=== PATIENT | male | born 2000 | race Caucasian/White ===

== ENCOUNTER 2024-01-06 10:37 | Emergency (ER) | payer OTHER, SELFPAY ==
[2024-01-06] VITALS (12 sets, daily range): BP systolic 105–125; BP diastolic 51–65; PULSE 94–130; RESP 18–31; TEMP 37; O2SAT 93–99; BMI 27.3
--- NOTE | 2024-01-06 11:17 | DI.RAD.S_ITS ---
PROCEDURE: XR CHEST 2V INDICATIONS: cough TECHNIQUE: 2 views of the chest were acquired. COMPARISON: None. FINDINGS: Surgical changes and devices: None. Lungs and pleura: Lungs are clear. No pleural effusions or pneumothorax. Mediastinum: Mediastinal contours are normal. Heart size is normal. Bones and chest wall: No suspicious bony abnormalities. Soft tissues appear unremarkable. IMPRESSION: No acute cardiopulmonary abnormality is seen. Dictated by: Vipin Monroy M.D. on 01/06/2024 at 12:17 Approved by: Vipin Monroy M.D. on 01/06/2024 at 12:17
--- NOTE | 2024-01-06 14:06 | EKG_ITS ---
[address] [address] Test Date: 2024-01-06 Pat Name: Oz Naranjo Department: [facility] Room: Gender: Male Beam Warper: JOSE : 2000 Requested By: Order Number: [id number] Reading MD: Babatunde Scott Measurements Intervals [place] Rate: 96 P: 45 CA: 144 QRS: 38 QRSD: 80 T: 7 QT: 334 QTc: 421 Interpretive Statements Normal sinus rhythm Electronically Signed On 01-07-2024 14:44:10 PDT by Babatunde Scott
[2024-01-06 14:10] LABS: Add Manual Diff / Slide Review NO; Basophils Absolute Auto 100 /uL (0-100); Basophils Percent Auto 0.5 % (0-2); Eosinophils Absolute Auto 100 /uL (0-450); Eosinophils Percent Auto 1.1 % (2-4); Hematocrit 41.2 % (41-53); Hemoglobin 13.8 g/dL (13.5-17.5); Lymphocytes Absolute Auto 1400 /uL (1100-4500); Lymphocytes Percent Auto 10.8 % (25-40); Mean Corpuscular HGB Conc 33.5 % (30-36); Mean Corpuscular Hemoglobin 26.9 PG (26-34); Mean Corpuscular Volume 80.4 fL (80-100); Monocytes Absolute Auto 1200 /uL (0-900); Monocytes Percent Auto 9.2 % (3-14); Neutrophils Absolute Auto 10300 /uL (1500-7000); Neutrophils Percent Auto 78.4 % (50-75); Platelet Count 324 X10^3/uL (150-400); Red Blood Cell Count 5.13 X10^6/uL (4.5-5.9); Red Cell Distribution Width 13.5 % (11.6-14.8); White Blood Cell Count 13.2 X10^3/uL (4.5-11.0)
[2024-01-06 14:12] LABS: INR 1.3 (0.9-1.3); Prothrombin Time 15.2 SECONDS (9.4-12.5)
[2024-01-06 14:15] LABS: PTT Partial Thromboplastin Tim 36 SECONDS (25.1-36.5)
[2024-01-06 14:16] LABS: Alanine Aminotransferase 23 IU/L (<50); Albumin 4.3 g/dL (3.5-5.0); Alkaline Phosphatase 84 U/L (38-126); Aspartate Aminotransferase 16 IU/L (17-59); BUN Creatinine Ratio 13.7 (6-22); Blood Urea Nitrogen 13 mg/dL (9-20); Calcium 9.2 mg/dL (8.4-10.2); Carbon Dioxide 27 mmol/L (22-32); Chloride 102 mmol/L (98-107); Creatine Kinase 40 U/L (55-170); Estimated Glomerular Filt Rate > 60 mL/min (>60); Globulin 2.2 g/dL (1.7-4.1); Glucose 87 mg/dL (70-100); HEMOLYSIS < 15 (0-50); Magnesium 2.1 mg/dL (1.6-2.3); Potassium 4.4 mmol/L (3.4-5.1); Sodium 138 mmol/L (137-145); Total Protein 6.5 g/dL (6.3-8.2)
[2024-01-06 14:22] LABS: D Dimer 260 ng/ml (<500)
[2024-01-06] MEDS: SODIUM CHLORIDE 0.9% 500 ML 1000 ML IV ×2 (14:22→15:52)
[2024-01-06 14:28] LABS: NT-proBNP (BNP-Adult 18+) 70 pg/mL (<125); Troponin I < 0.012 ng/mL (0.01-0.034)
--- NOTE | 2024-01-06 14:38 | ED_ITS ---
HPI - SOB/Dyspnea General Chief Complaint: Upper Respiratory Symptoms Stated Complaint: PNA 2 wks ago- sent from pcp O2 90 HR 110 Time Seen by Provider: 01/06/24 12:45 Source: patient and RN notes reviewed Mode of arrival: Ambulatory Limitations: no limitations History of Present Illness HPI Narrative: 23-year-old male no reported medical issues who reports he would pneumonia on the left side in October was treated with antibiotics improved and then travel to [place] for work. States he developed cough, hoarseness and lost his voice returned to the [facility] and was diagnosed with pneumonia on December 23, was treated with antibiotics azithromycin and amoxicillin for 5 days. Completed his antibiotic course on the 28 of December. States felt a little bit improved has not had any persistent fevers but has had persistent shortness of breath, fatigue, increased shortness of breath with exertion. States occasionally little bit of chest discomfort, states he has occasionally had green productive sputum but sometimes his cough has been dry. Does have an inhaler that he had leftover from October has used it works very briefly and then symptoms returned. Patient states no new swelling of extremities. Denies any nausea or vomiting, no diarrhea constipation, no urinary symptoms. Patient has went to primary care had elevated heart rates and had O2 in the low 90s and was sent to the ER for evaluation. States no daily prescription medications normally. No known drug allergies. History of vasectomy, no tobacco, occasional alcohol, no recreational drugs. No known cardiac, pulmonary embolic history. Related Data Previous Rx's Medication Instructions Recorded clarithromycin 500 mg tablet 500 mg PO Q12H #20 tabs 01/06/24 Allergies Allergy/AdvReac Type Severity Reaction Status Date / Time No Known Drug Allergies Allergy Verified 01/06/24 10:50 Review of Systems Review of Systems ROS Unobtainable: All systems reviewed & are unremarkable except as noted in HPI and below Patient History Social History Smoking Status: Never smoker Smoking Status: Never smoker alcohol intake frequency: holidays/special occasions only Substance Use Type: does not use Exam Narrative Exam Narrative: GEN: well nourished, well appearing male, alert and oriented x 3, patient appears to be in mild distress. HEENT: Atraumatic, pupils are equal round reactive to light, extraocular movements are intact, nares are clear, there is no conjunctival pallor. Throat is clear without any exudates, erythema, tonsillar enlargement or uvular deviation, patient is slightly hoarse. HEART: Regular rate and rhythm without murmur, clicks, rubs. No edema bilateral lower extremity LUNGS:Lungs clear to auscultation, no wheezes, rales, crackles, chest moves symmetrically ABD:bowel sounds normal, soft, non-tender, no guarding, rebound, rigidity, no masses noted, no hepatosplenomegaly MSCL: Non-tender, no muscle atrophy, muscles strength 5/5 upper and lower extremities, full range of motion, normal gait NEURO:CN 2-12 intact, sensation normal. SKIN: No rash, erythema or other skin changes. Initial Vital Signs Initial Vital Signs: Vital Signs Temperature 98.6 F 01/06/24 10:47 Pulse Rate 104 H 01/06/24 10:47 Respiratory Rate 18 01/06/24 10:47 Blood Pressure 122/65 01/06/24 10:47 Pulse Oximetry 95 01/06/24 10:47 Oxygen Delivery Method Room Air 01/06/24 10:47 Course Orders Ordered: ED Orders 01/06/24 11:17 XR chest 2V Stat 01/06/24 13:48 EKG-12 Lead Stat 01/06/24 14:00 Complete Blood Count AUTO DIFF Stat Comprehensive Metabolic Panel Stat D Dimer Stat Magnesium Stat Monotest Stat NT-proBNP (BNP-Adult 18+) Stat PTT Partial Thromboplastin Cm Stat Prothrombin Time INR Stat Troponin & CK Cardiac Panel Stat 01/06/24 15:09 CT angio chest PE protocol Stat Discontinued Medications Albuterol/Ipratropium (Albuterol/Ipratropium 3 Ml Ampul) 3 ml INH NOW ONE Stop: 01/06/24 15:10 Last Admin: 01/06/24 15:21 Dose: 3 ml Documented By: MARIA ISABEL Sodium Chloride (Normal Saline 0.9%) 500 mls @ 1,000 mls/hr IV BOLUS ONE Stop: 01/06/24 14:17 Last Infusion: 01/06/24 15:04 Dose: Infused Documented By: Admin: 01/06/24 14:22 Dose: 1,000 mls/hr Documented By: CATARINA Sodium Chloride (Normal Saline 0.9%) 500 mls @ 1,000 mls/hr IV BOLUS ONE Stop: 01/06/24 15:39 Last Infusion: 01/06/24 17:17 Dose: Infused Documented By: Admin: 01/06/24 15:52 Dose: 1,000 mls/hr Documented By: CATARINA Vital Signs Vital signs: Vital Signs - 8 hr 01/06/24 10:47 01/06/24 10:53 01/06/24 13:49 Temperature 98.6 F Pulse Rate 104 H 130 H 99 H Respiratory Rate 18 30 H Blood Pressure 122/65 Pulse Oximetry 95 93 96 Oxygen Delivery Method Room Air 01/06/24 14:00 01/06/24 14:00 01/06/24 14:30 Temperature Pulse Rate 100 H Respiratory Rate Blood Pressure 110/63 106/51 L Pulse Oximetry 96 Oxygen Delivery Method 01/06/24 14:30 01/06/24 15:00 01/06/24 15:00 Temperature Pulse Rate 94 H 96 H Respiratory Rate 21 Blood Pressure 105/55 L Pulse Oximetry 99 99 Oxygen Delivery Method 01/06/24 15:07 01/06/24 15:30 01/06/24 15:30 Temperature Pulse Rate 95 H 101 H Respiratory Rate 30 H 25 H Blood Pressure 105/55 L 117/64 Pulse Oximetry 97 97 Oxygen Delivery Method Room Air 01/06/24 15:43 01/06/24 15:43 01/06/24 16:00 Temperature Pulse Rate 111 H Respiratory Rate 28 H Blood Pressure 116/61 115/63 Pulse Oximetry 93 Oxygen Delivery Method 01/06/24 16:00 01/06/24 16:30 01/06/24 16:30 Temperature Pulse Rate 101 H 101 H Respiratory Rate 31 H 23 Blood Pressure 116/62 Pulse Oximetry 96 98 Oxygen Delivery Method 01/06/24 17:00 01/06/24 17:00 Temperature Pulse Rate 102 H Respiratory Rate 26 H Blood Pressure 125/59 L Pulse Oximetry 98 Oxygen Delivery Method MDM - SOB/Dyspnea Lab Data 01/06/24 14:00 01/06/24 14:00 Labs: Lab Results 01/06/24 Range/Units 14:00 WBC 13.2 H (4.5-11.0) X10^3/uL RBC 5.13 (4.5-5.9) X10^6/uL Hgb 13.8 (13.5-17.5) g/dL Hct 41.2 (41-53) % MCV 80.4 (80-100) fL MCH 26.9 (26-34) PG MCHC 33.5 (30-36) % RDW 13.5 (11.6-14.8) % Plt Count 324 (150-400) X10^3/uL Neut % (Auto) 78.4 H (50-75) % Lymph % (Auto) 10.8 L (25-40) % Crook % (Auto) 9.2 (3-14) % Eos % (Auto) 1.1 L (2-4) % Baso % (Auto) 0.5 (0-2) % Neut # (Auto) 56827 H (5764-4570) /uL Lymph # (Auto) 1400 (2972-4962) /uL [place] # (Auto) 1200 H (0-900) /uL Eos # (Auto) 100 (0-450) /uL Baso # (Auto) 100 (0-100) /uL PT 15.2 H (9.4-12.5) SECONDS INR 1.3 (0.9-1.3) APTT 36 (25.1-36.5) SECONDS D-Dimer 260 (<500) ng/ml Sodium 138 (137-145) mmol/L Potassium 4.4 (3.4-5.1) mmol/L Chloride 102 (98-107) mmol/L Carbon Dioxide 27 (22-32) mmol/L BUN 13 (9-20) mg/dL Creatinine 0.95 (0.66-1.25) mg/dL Estimated GFR > 60 (>60) mL/min BUN/Creatinine Ratio 13.7 (6-22) Glucose 87 (70-100) mg/dL Calcium 9.2 (8.4-10.2) mg/dL Magnesium 2.1 (1.6-2.3) mg/dL Total Bilirubin 1.0 (0.2-1.3) mg/dL AST 16 L (17-59) IU/L ALT 23 (<50) IU/L Alkaline Phosphatase 84 (38-126) U/L Total Creatine Kinase 40 L (55-170) U/L Troponin I < 0.012 (0.01-0.034) ng/mL NT-Pro-B Natriuret Pep 70 (<125) pg/mL Total Protein 6.5 (6.3-8.2) g/dL Albumin 4.3 (3.5-5.0) g/dL Globulin 2.2 (1.7-4.1) g/dL Albumin/Globulin Ratio 2.0 (1.0-2.8) Monoscreen Negative (Negative) Imaging Data Chest x-ray: Radiologist's Impression: Oz Naranjo??23??M??2000 ? Allergy/Adv: No Known Drug Allergies Close Chest X-Ray (Signed) Vipin Monroy - 01/06/24 Launch?[address] [address] XRay Report Signed Patient: Oz Naranjo MR#: [id number] : 2000 Acct:[id number] Age/Sex: 23 / M Date of Service: 01/06/24 Loc: ED Accession Number: [id number] Procedure: XR chest 2V Ordering Provider: Fabiola Manrique D.O. PROCEDURE: XR CHEST 2V INDICATIONS: cough TECHNIQUE: 2 views of the chest were acquired. COMPARISON: None. FINDINGS: Surgical changes and devices: None. Lungs and pleura: Lungs are clear. No pleural effusions or pneumothorax. Mediastinum: Mediastinal contours are normal. Heart size is normal. Bones and chest wall: No suspicious bony abnormalities. Soft tissues appear unremarkable. IMPRESSION: No acute cardiopulmonary abnormality is seen. Dictated by: Vipin Monroy M.D. on 01/06/2024 at 12:17 Approved by: Vipin Monroy M.D. on 01/06/2024 at 12:17 CT scan - chest: Radiologist's Impression: Close Chest CTA (Signed) Kojo Hale - 01/06/24 Chest X-Ray (Signed) Ortiz Monroyy - 01/06/24 Launch?[place] [address] CT Scan Report Signed Patient: Oz Naranjo MR#: [id number] : 2000 Acct:[id number] Age/Sex: 23 / M Date of Service: 01/06/24 Loc: ED Accession Number: [id number] Procedure: CT angio chest PE protocol Ordering Provider: Fabiola Manrique D.O. PROCEDURE: CT ANGIO CHEST PE PROTOCOL INDICATIONS: chest pain, cough, pna x 2, neg cxr, recent flights TECHNIQUE: After the administration of intravenous contrast, 2 mm thick sections acquired from the pulmonary apices to the posterior costophrenic angles. 3-dimensional maximum intensity projection (MIP) coronal and sagittal reformats were then acquired through the thorax. For radiation dose reduction, the following was used: automated exposure control, adjustment of mA and/or kV according to patient size. COMPARISON: [facility], CR, XR CHEST 2V, 01/06/2024, 11:23. FINDINGS: Image quality: Diagnostic. Pulmonary arteries: Pulmonary arteries are normal in size, and demonstrate no intraluminal filling defects to suggest central pulmonary embolism. Lower Neck: No enlarged lymph nodes. Thyroid: No thyroid nodules which require sonographic follow up, per consensus guidelines. Axillae: Borderline enlarged axillary lymph nodes. For instance, the 1 cm short axis right level 1 node (series 4, image 30). Chest Wall: Unremarkable. Bones: Unremarkable. Lungs and Pleura: Dependent consolidation with tree-in-bud nodules. Heart: Heart size is normal. No pericardial effusion. Thoracic Vessels: No aortic aneurysm. Mediastinum and Ju: Prominent mediastinal lymph nodes. Esophagus: No wall thickening. No hiatal hernia. Upper Abdomen: The spleen is markedly enlarged for age. IMPRESSION: No pulmonary embolus. Dependent consolidation and tree-in-bud nodules. Findings are concerning for multifocal bronchopneumonia, versus aspiration pneumonia. Marked splenomegaly and prominent mediastinal and axillary lymph nodes. Findings raise a concern for lymphoma. Further workup is indicated. Dictated by: Kojo Hale M.D. on 01/06/2024 at 16:13 Approved by: Kojo Hale M.D. on 01/06/2024 at 16:19 ECG Data Attestation: I personally reviewed and interpreted this ECG as follows: Interpretation: Sinus rhythm rate of 96 NC 144 QRS 80 QTC of 421, no acute ST elevation. MDM Narrative Medical decision making narrative: 23-year-old male with to recent bouts of pneumonia treated with oral antibiotics. Initial episode was in October was treated with antibiotics and improved. Did travel to [place]. Patient states last treatment was December 23 and was treated with azithromycin and amoxicillin. Minimal improvement. Patient is slightly hoarse but it was also tachycardic little bit hypotensive, slightly coarse on examination but no wheeze. EKG shows no acute change Chest x-ray shows no acute change Labs show white count of 13.2 hemoglobin of 13.8 platelets of 324. Coags show a PT of 15.2 normal INR and PTT, D-dimer is 260. Electrolytes are normal, BUN and creatinine is normal glucose is 87, AST is 16, total CK is 40, troponins less than 0.012 with a BNP of 70. Monospot is negative D-dimer is negative but patient is tachycardic hypotensive describes chest pain and shortness of breath, he is slightly coarse but not wheezing on exam suspect this is more infectious but discussed with patient we will obtain CT chest to evaluate pneumonia versus PE. Patient received fluids, DuoNeb. Patient did fine DuoNebs somewhat helpful. Has been slightly tachycardic has not had any hypoxia here in the department. CT chest shows dependent consolidation tree-in-bud nodules concerning for multifocal bronchopneumonia versus aspiration pneumonia, marked splenomegaly and prominent mediastinal and axillary lymph nodes findings raise concern for lymphoma. Consult with oncology, Dr. Harvey, [facility] and reviewed findings today. Asks for monospot to be added on but will see patient in the office. States that they will obtain peripheral smear through the office. Patient should expect a phone call in 1-2 days to set up a follow up appointment. Reviewed findings with patient, we will treat with antibiotic for possible bacterial/aspiration pneumonia but discussed with patient he should expect a call from Oncology to be evaluated for malignancy versus other causes in the next 1-2 days for follow-up regarding changes to his lungs as well as enlarged spleen and lymphadenopathy in the mediastinum and axilla. Did review they asked for a Monospot which was negative. And we will likely have additional blood work that they require. Patient did feel improved after DuoNeb but does not have a spacer for his albuterol so this was provided with the teaching. Was also send a prescription for oral antibiotic although discussed with the patient this may not be effective in his need for follow up Discharge Plan Departure Patient Disposition: Home Clinical Impression: Pneumonia, Splenomegaly, Mediastinal lymphadenopathy Instructions: DI for Enlarged Spleen Activity Restrictions/Additional Instructions: Your labs today show your white count is slightly elevated, imaging does show possible multifocal pneumonia with some tree-in-bud changes but it was also noted you have a very enlarged spleen and some increased lymphadenopathy in the mediastinum and axillary region. Your monospot was negative. Please call to set follow up with your primary care physician, let them know about your findings and that you have been referred to Oncology. No contact sports or high impact activities. Take antibiotics until completed. We are treating you for potential pneumonia. Prescription was sent to [facility] in [place]. You can continue to use albuterol but use the spacer with it you can do 4-8 puffs as needed for shortness of breath. I spoke with Oncology, Dr. Harvey through [facility] they should be contacting you in the next 1-2 days to follow up these findings for additional workup. If you have not heard from them by Saturday afternoon please call the contact number below. Return if you are having increasing shortness of breath lightheadedness or passing out, new chest pain, persistent vomiting, new swelling of your extremities or other new or concerning changes. Prescriptions: New clarithromycin 500 mg tablet 500 mg PO Q12H Qty: 20 0RF Stand Alone Forms: Patient Portal/API/Survey, Work Release Note
--- NOTE | 2024-01-06 15:09 | DI.CT.S_ITS ---
PROCEDURE: CT ANGIO CHEST PE PROTOCOL INDICATIONS: chest pain, cough, pna x 2, neg cxr, recent flights TECHNIQUE: After the administration of intravenous contrast, 2 mm thick sections acquired from the pulmonary apices to the posterior costophrenic angles. 3-dimensional maximum intensity projection (MIP) coronal and sagittal reformats were then acquired through the thorax. For radiation dose reduction, the following was used: automated exposure control, adjustment of mA and/or kV according to patient size. COMPARISON: [facility], CR, XR CHEST 2V, 01/06/2024, 11:23. FINDINGS: Image quality: Diagnostic. Pulmonary arteries: Pulmonary arteries are normal in size, and demonstrate no intraluminal filling defects to suggest central pulmonary embolism. Lower Neck: No enlarged lymph nodes. Thyroid: No thyroid nodules which require sonographic follow up, per consensus guidelines. Axillae: Borderline enlarged axillary lymph nodes. For instance, the 1 cm short axis right level 1 node (series 4, image 30). Chest Wall: Unremarkable. Bones: Unremarkable. Lungs and Pleura: Dependent consolidation with tree-in-bud nodules. Heart: Heart size is normal. No pericardial effusion. Thoracic Vessels: No aortic aneurysm. Mediastinum and Ju: Prominent mediastinal lymph nodes. Esophagus: No wall thickening. No hiatal hernia. Upper Abdomen: The spleen is markedly enlarged for age. IMPRESSION: No pulmonary embolus. Dependent consolidation and tree-in-bud nodules. Findings are concerning for multifocal bronchopneumonia, versus aspiration pneumonia. Marked splenomegaly and prominent mediastinal and axillary lymph nodes. Findings raise a concern for lymphoma. Further workup is indicated. Dictated by: Kojo Hale M.D. on 01/06/2024 at 16:13 Approved by: Kojo Hale M.D. on 01/06/2024 at 16:19
[2024-01-06] MEDS: ALBUTEROL/IPRATROPIUM 3 ML AMPUL INH (15:21)
[2024-01-06 17:09] LABS: Monotest Negative (Negative)
== END 2024-01-06 17:32 | disposition home or self-care (01) ==
PROVIDERS: Emergency Provider Emergency Medicine
DX: J18.9 Pneumonia, unspecified organism (principal); R59.0 Localized enlarged lymph nodes; R16.1 Splenomegaly, not elsewhere classified; R07.9 Chest pain, unspecified
CPT/HCPCS: 71046; 71275; 80053; 82550; 83735; 83880; 84484; 85025; 85379; 85610; 85730; 86318; 93005; 94640; 96360; 96361; 99284

== ENCOUNTER 2024-02-04 20:07 | Emergency (ER) | payer OTHER, SELFPAY ==
[2024-02-04] VITALS (10 sets, daily range): BP systolic 107–141; BP diastolic 56–105; PULSE 96–115; RESP 20–27; TEMP 37.3–38.4; O2SAT 93–96; BMI 25.8
--- NOTE | 2024-02-04 20:21 | DI.RAD.S_ITS ---
PROCEDURE: XR CHEST 1V INDICATIONS: suspected sepsis TECHNIQUE: One view of the chest was acquired. COMPARISON: [facility], CR, XR CHEST 2V, 01/06/2024, 11:23. FINDINGS: Surgical changes and devices: None. Lungs and pleura: Patchy left upper lobe opacities. Mediastinum: Mediastinal contours appear normal. Heart size is normal. Bones and chest wall: No suspicious bony lesions. Overlying soft tissues appear unremarkable. IMPRESSION: Left upper lobe opacities consistent with pneumonia. Dictated by: Ashley Ryan M.D. on 02/04/2024 at 20:41 Approved by: Ashley Ryan M.D. on 02/04/2024 at 20:45
--- NOTE | 2024-02-04 20:26 | EKG_ITS ---
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
[2024-02-04 20:31] LABS: Add Manual Diff / Slide Review NO; Basophils Absolute Auto 100 /uL (0-100); Basophils Percent Auto 0.8 % (0-2); Eosinophils Absolute Auto 200 /uL (0-450); Eosinophils Percent Auto 2.3 % (2-4); Hemoglobin 12.9 g/dL (13.5-17.5); Lymphocytes Absolute Auto 1600 /uL (1100-4500); Lymphocytes Percent Auto 17.1 % (25-40); Mean Corpuscular HGB Conc 33.8 % (30-36); Mean Corpuscular Hemoglobin 26.3 PG (26-34); Mean Corpuscular Volume 77.7 fL (80-100); Monocytes Absolute Auto 700 /uL (0-900); Monocytes Percent Auto 7.9 % (3-14); Neutrophils Absolute Auto 6600 /uL (1500-7000); Neutrophils Percent Auto 71.9 % (50-75); Platelet Count 253 X10^3/uL (150-400); Red Blood Cell Count 4.89 X10^6/uL (4.5-5.9); Red Cell Distribution Width 13.6 % (11.6-14.8); White Blood Cell Count 9.2 X10^3/uL (4.5-11.0)
[2024-02-04 20:38] LABS: INR 1.4 (0.9-1.3); Prothrombin Time 15.9 SECONDS (9.4-12.5)
[2024-02-04 20:40] LABS: PTT Partial Thromboplastin Tim 34 SECONDS (25.1-36.5)
[2024-02-04 20:41] LABS: Lactate (Lactic Acid) 0.7 mmol/L (0.7-2.1)
[2024-02-04] MEDS: ACETAMINOPHEN 325 MG TABLET 975 MG PO (20:41)
[2024-02-04 20:42] LABS: Alanine Aminotransferase 17 IU/L (<50); Albumin Globulin Ratio 1.6 (1.0-2.8); Alkaline Phosphatase 69 U/L (38-126); Aspartate Aminotransferase 19 IU/L (17-59); BUN Creatinine Ratio 17.4 (6-22); Bilirubin Total 0.7 mg/dL (0.2-1.3); Blood Urea Nitrogen 15 mg/dL (9-20); Calcium 8.9 mg/dL (8.4-10.2); Carbon Dioxide 26 mmol/L (22-32); Chloride 100 mmol/L (98-107); Estimated Glomerular Filt Rate > 60 mL/min (>60); Globulin 2.5 g/dL (1.7-4.1); Glucose 126 mg/dL (70-100); HEMOLYSIS < 15 (0-50); Lipase 43 U/L (23-300); Potassium 3.7 mmol/L (3.4-5.1); Sodium 134 mmol/L (137-145); Total Protein 6.5 g/dL (6.3-8.2)
[2024-02-04 20:59] LABS: Procalcitonin 0.142 ng/mL (<0.5)
[2024-02-04] MEDS: SODIUM CHLORIDE 0.9% 1,000 ML 1000 ML IV (21:14)
[2024-02-04 21:40] LABS: Adenovirus Not Detected (Not Detect); B. parapertussis Not Detected (Not Detecte); Bordetella pertussis Not Detected (Not Detect); Chlamydophila pneumoniae Not Detected (Not Detect); Coronavirus 229E Not Detected (Not Detect); Coronavirus HKU1 Not Detected (Not Detect); Coronavirus NL 63 Detected (Not Detect); Coronavirus OC43 Not Detected (Not Detect); Human Metapneumovirus Not Detected (Not Detect); Human Rhinovirus/Enterovirus Not Detected (Not Detect); Influenza A Not Detected (Not Detect); Influenza B Not Detected (Not Detect); Mycoplasma pneumoniae Not Detected (Not Detect); Parainfluenza Virus 1 Not Detected (Not Detect); Parainfluenza Virus 2 Not Detected (Not Detect); Parainfluenza Virus 3 Not Detected (Not Detect); Parainfluenza Virus 4 Not Detected (Not Detect); Respiratory Syncytial Virus Not Detected (Not Detect); SARS- CoV-2 Not Detected (Not Detecte)
--- NOTE | 2024-02-04 21:41 | ED_ITS ---
HPI - Fever General Chief Complaint: Fever Stated Complaint: pneumonia, fever, sob Time Seen by Provider: 02/04/24 20:34 Source: patient, RN notes reviewed and old records reviewed Mode of arrival: Ambulatory Limitations: no limitations History of Present Illness HPI Narrative: 23-year-old male with recurrent pneumonia was last seen here in December 2023 was referred to Oncology as he has had recurrent pneumonia and had mediastinal and axillary lymphadenopathy with tree-in-bud nodularity and marked splenomegaly on CT of the chest. Patient presents with fevers that started in the past 2 days. Describes some shortness of breath. Has been using some albuterol but minimal improvement. No chest pain, no syncope. No other GI or urinary symptoms except for some constipation. No swelling in extremities. Patient states he is not currently on any medications except for using albuterol as needed. He states it is minimally helpful. No new allergies. He did see Dr. Harvey with Oncology head CT of his chest still showed some pneumonia changes supposed to be seen tomorrow in the office. Patient states he presents tonight because of new fevers as they had resolved. He states he felt better for about 2 days after he completed his antibiotics in December. Related Data Previous Rx's Medication Instructions Recorded clarithromycin 500 mg tablet 500 mg PO Q12H #20 tabs 01/06/24 Allergies Allergy/AdvReac Type Severity Reaction Status Date / Time No Known Drug Allergies Allergy Verified 02/04/24 20:20 Review of Systems Review of Systems ROS Unobtainable: All systems reviewed & are unremarkable except as noted in HPI and below Patient History Social History Smoking Status: Never smoker Smoking Status: Never smoker alcohol intake frequency: holidays/special occasions only Substance Use Type: does not use Exam Narrative Exam Narrative: GENERAL: Alert and oriented x three, male in mild distress HEENT: Head normocephalic, atraumatic, EOMI, pupils reactive, face symmetric, moist mucous membranes NECK: Supple, full range of motion CARDIOVASCULAR: Mild tachycardia but regular rate and rhythm without murmurs, rubs or gallops. No JVD. No edema bilateral lower extremities. RESPIRATORY: Breath sounds equal bilaterally, no wheezes rales or rhonchi. No tachypnea accessory muscle use. Speaks in full sentences. ABDOMEN: Soft, nontender. Normoactive bowel sounds all 4 quadrants. No guarding or rebound, rigidity, no mass : No CVA tenderness EXTREMITIES: Normal range of motion, no clubbing or edema. Neurovascularly intact NEUROLOGICAL: Cranial nerves II through XII grossly intact. Moving all extremities SKIN: Warm, dry, no petechiae, no rashes or lesions. Initial Vital Signs Initial Vital Signs: Vital Signs Temperature 101.2 F H 02/04/24 20:07 Pulse Rate 113 H 02/04/24 20:07 Respiratory Rate 20 02/04/24 20:07 Blood Pressure 141/61 H 02/04/24 20:07 Pulse Oximetry 93 02/04/24 20:07 Oxygen Delivery Method Room Air 02/04/24 20:07 Course Orders Ordered: ED Orders 02/04/24 20:21 XR chest 1V Stat Complete Blood Count AUTO DIFF Stat Comprehensive Metabolic Panel Stat Lactate (Lactic Acid) Stat Lipase Stat PTT Partial Thromboplastin Cm Stat Procalcitonin Stat Prothrombin Time INR Stat EKG-12 Lead Stat RT Consult Eval and Treat NOW 02/04/24 20:41 Blood Culture Stat 02/04/24 20:43 Respiratory Panel (Film Array) Stat Discontinued Medications Acetaminophen (Acetaminophen 325 Mg Tablet) 975 mg PO NOW ONE Stop: 02/04/24 20:35 Last Admin: 02/04/24 20:41 Dose: 975 mg Documented By: ZENY Sodium Chloride (Normal Saline 0.9%) 1,000 mls @ 1,000 mls/hr IV BOLUS ONE Stop: 02/04/24 21:19 Last Infusion: 02/04/24 22:16 Dose: Infused Documented By: Admin: 02/04/24 21:14 Dose: 1,000 mls/hr Documented By: ZENY Ondansetron HCl (Ondansetron 4 Mg/2 Ml Inj) 4 mg IV NOW PRN PRN Reason: Nausea And Vomiting Ondansetron HCl (Ondansetron 4 Mg Odt) 4 mg SL NOW PRN PRN Reason: Nausea And Vomiting Vital Signs Vital signs: Vital Signs - 8 hr 02/04/24 20:07 02/04/24 20:13 02/04/24 20:30 Temperature 101.2 F H Pulse Rate 113 H 113 H 115 H Respiratory Rate 20 23 23 Blood Pressure 141/61 H Pulse Oximetry 93 95 96 Oxygen Delivery Method Room Air Room Air 02/04/24 20:31 02/04/24 20:31 02/04/24 20:41 Temperature 101.2 F H Pulse Rate 112 H Respiratory Rate 24 Blood Pressure 122/105 H Pulse Oximetry 95 Oxygen Delivery Method Room Air 02/04/24 21:00 02/04/24 21:08 02/04/24 21:08 Temperature 100.2 F H Pulse Rate 105 H 102 H Respiratory Rate 22 23 Blood Pressure 118/61 Pulse Oximetry 93 95 Oxygen Delivery Method Room Air 02/04/24 21:08 02/04/24 21:30 02/04/24 21:30 Temperature 100.2 F H Pulse Rate 96 H Respiratory Rate 27 H Blood Pressure 111/59 L Pulse Oximetry 96 Oxygen Delivery Method Room Air 02/04/24 22:00 02/04/24 22:01 02/04/24 22:01 Temperature 99.1 F Pulse Rate 98 H 101 H Respiratory Rate 20 21 Blood Pressure 107/56 L Pulse Oximetry 96 95 Oxygen Delivery Method Room Air Room Air MDM - Fever Lab Data 02/04/24 20:21 02/04/24 20:21 Labs: Lab Results 02/04/24 02/04/24 Range/Units 20:21 20:43 WBC 9.2 (4.5-11.0) X10^3/uL RBC 4.89 (4.5-5.9) X10^6/uL Hgb 12.9 L (13.5-17.5) g/dL Hct 38.0 L (41-53) % MCV 77.7 L (80-100) fL MCH 26.3 (26-34) PG MCHC 33.8 (30-36) % RDW 13.6 (11.6-14.8) % Plt Count 253 (150-400) X10^3/uL Neut % (Auto) 71.9 (50-75) % Lymph % (Auto) 17.1 L (25-40) % [place] % (Auto) 7.9 (3-14) % Eos % (Auto) 2.3 (2-4) % Baso % (Auto) 0.8 (0-2) % Neut # (Auto) 6600 (3829-6653) /uL Lymph # (Auto) 1600 (2046-3530) /uL [place] # (Auto) 700 (0-900) /uL Eos # (Auto) 200 (0-450) /uL Baso # (Auto) 100 (0-100) /uL PT 15.9 H (9.4-12.5) SECONDS INR 1.4 H (0.9-1.3) APTT 34 (25.1-36.5) SECONDS Sodium 134 L (137-145) mmol/L Potassium 3.7 (3.4-5.1) mmol/L Chloride 100 (98-107) mmol/L Carbon Dioxide 26 (22-32) mmol/L BUN 15 (9-20) mg/dL Creatinine 0.86 (0.66-1.25) mg/dL Estimated GFR > 60 (>60) mL/min BUN/Creatinine Ratio 17.4 (6-22) Glucose 126 H (70-100) mg/dL Lactate 0.7 (0.7-2.1) mmol/L Calcium 8.9 (8.4-10.2) mg/dL Total Bilirubin 0.7 (0.2-1.3) mg/dL AST 19 (17-59) IU/L ALT 17 (<50) IU/L Alkaline Phosphatase 69 (38-126) U/L Total Protein 6.5 (6.3-8.2) g/dL Albumin 4.0 (3.5-5.0) g/dL Globulin 2.5 (1.7-4.1) g/dL Albumin/Globulin Ratio 1.6 (1.0-2.8) Lipase 43 (23-300) U/L Procalcitonin 0.142 (<0.5) ng/mL Chlamy pneumoniae PCR Not detected (Not Detect) Adenovirus (PCR) Not detected (Not Detect) B. pertussis DNA (PCR) Not detected (Not Detect) B.parapertussis DNA PCR Not detected (Not Detecte) Coronavirus OC43 (PCR) Not detected (Not Detect) Coronavirus HKU1 (PCR) Not detected (Not Detect) Coronavirus 229E (PCR) Not detected (Not Detect) SARS-CoV-2 (PCR) Not detected (Not Detecte) Coronavirus NL63 (PCR) Detected H (Not Detect) Human Metapneumovir PCR Not detected (Not Detect) Influenza Type A (PCR) Not detected (Not Detect) Influenza Type B (PCR) Not detected (Not Detect) M. pneumoniae (PCR) Not detected (Not Detect) Parainfluenza 1 (PCR) Not detected (Not Detect) Parainfluenza 2 (PCR) Not detected (Not Detect) Parainfluenza 3 (PCR) Not detected (Not Detect) Parainfluenza 4 (PCR) Not detected (Not Detect) RSV (PCR) Not detected (Not Detect) Entero/Rhino (PCR) Not detected (Not Detect) Imaging Data Chest x-ray: Radiologist's Impression: Oz Naranjo??23??M??2000 ? Allergy/Adv: No Known Drug Allergies Close Chest X-Ray (Signed) Ashley Ryan - 02/04/24 Chest CTA (Signed) Kojo Hale - 01/06/24 Chest X-Ray (Signed) Vipin Monroy - 01/06/24 Launch?Image [address] [address] XRay Report Signed Patient: Oz Naranjo MR#: [id number] : 2000 Acct:[id number] Age/Sex: 23 / M Date of Service: 02/04/24 Loc: ED Accession Number: [id number] Procedure: XR chest 1V Ordering Provider: Fabiola Manrique D.O. PROCEDURE: XR CHEST 1V INDICATIONS: suspected sepsis TECHNIQUE: One view of the chest was acquired. COMPARISON: [facility], , XR CHEST 2V, 01/06/2024, 11:23. FINDINGS: Surgical changes and devices: None. Lungs and pleura: Patchy left upper lobe opacities. Mediastinum: Mediastinal contours appear normal. Heart size is normal. Bones and chest wall: No suspicious bony lesions. Overlying soft tissues appear unremarkable. IMPRESSION: Left upper lobe opacities consistent with pneumonia. Dictated by: Ashley Ryan M.D. on 02/04/2024 at 20:41 Approved by: Ashley Ryan M.D. on 02/04/2024 at 20:45 ECG Data Attestation: I personally reviewed and interpreted this ECG as follows: Interpretation: Sinus tachycardia rate of 101 LA 140 QRS 82 QTC of 407, no acute ST elevation or depression. MDM Narrative Medical decision making narrative: 23-year-old male with recurrent pneumonia, has been referred to Oncology for concerns as patient had tree-in-bud nodularity, marked splenomegaly mediastinal and axillary lymphadenopathy on CT angio chest seen here in December by myself. Since then patient states he completed antibiotics felt better for about 2 days after completing it and then had persistent symptoms. Has not been having persistent fevers until the last 2 days. He states his work of breathing is not significantly increased. Did see oncology had a CT of his chest in the past week still had pneumonia changes as well as splenomegaly and states he was not started on any antibiotics. He has not appointment tomorrow with Dr. Menon with oncology. Labs show white count of 9.2 hemoglobin of 12.9, platelets are 253 lymphocytes are low no predominance of neutrophils noted. INR is 1.4 sodium is 134 potassium 3.7 chloride 100, CO2 is 26 with a BUN 15 creatinine 0.86 glucose is 126 lactate is 0.7., procalcitonin 0.412 Respiratory panel is positive for coronavirus NL63 EKG shows sinus tachycardia Chest x-ray shows left lower lobe opacities consistent with pneumonia. Patient had CT of chest on 01/06/2024 showed borderline enlarged axillary lymph nodes dependent consolidation with tree-in-bud nodules prominent mediastinal lymph nodes with spleen markedly enlarged for age. Patient was febrile tachycardic, no hypotension does meet SIRS criteria for sepsis. Patient received Tylenol 1 L normal saline tachycardia is improving fevers also improving. Discussed with patient does have a source for his new fever positive coronavirus mL 63, chest x-ray does show persistent change had a CT of his chest last week which showed persistent change he I do not have access to this but does not sound like he would significant changes to his lymphadenopathy. Reviewed imaging changes with patient at this time we will hold for antibiotics as I suspect there is more than just bacterial pneumonia although did offer prescription for antibiotics. Discussed with patient we will hold on antibiotics as we have a clear viral source but patient is going to follow up tomorrow with Oncology/Hematology. Patient states he feels comfortable with this plan all questions answered. Return precautions also discussed. Discharge Plan Departure Patient Disposition: Home Clinical Impression: Coronavirus infection Activity Restrictions/Additional Instructions: You have tested positive for coronavirus NL63, this is a viral illness that can cause fevers and respiratory symptoms this is not the same as COVID-19. Continue with Tylenol and ibuprofen for fever. Please follow up tomorrow with Oncology to review your results and next steps. Please return if you are having new or worsening symptoms increasing shortness of breath, lightheadedness or passing out, persistent fevers, coughing up blood, new swelling of your extremities or other new or concerning changes. Prescriptions: No Action clarithromycin 500 mg tablet 500 mg PO Q12H Qty: 20 0RF Referrals: Oziel Collier MD [Physician] - Provider,Jeronimo OLIVO [Primary Care Provider] - Stand Alone Forms: Patient Portal/API/Survey
== END 2024-02-04 22:18 | disposition home or self-care (01) ==
PROVIDERS: Emergency Provider Emergency Medicine
DX: B34.2 Coronavirus infection, unspecified (principal); J18.9 Pneumonia, unspecified organism; R00.0 Tachycardia, unspecified; R06.02 Shortness of breath
CPT/HCPCS: 36415; 71045; 80053; 83605; 83690; 84145; 85025; 85610; 85730; 87040; 87633; 93005; 96360; 99284

== ENCOUNTER 2024-05-29 10:36 | Emergency (ER) | payer OTHER, SELFPAY ==
[2024-05-29 10:56] VITALS: BP 134/66; PULSE 84; RESP 20; TEMP 36.6; BMI 27.3
--- NOTE | 2024-05-29 11:34 | ED_ITS ---
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 Patient was seen in the emergency department last year for recurrent pneumonia and follow up outpatient with Hematology/Oncology and was eventually diagnosed with CVID. He suffers frequent ear, sinus, lung infections. He has been doing well overall, recently completed a course of Augmentin. About 2 weeks ago he developed itchy/irritation/redness of the right eye and saw his primary care doctor who diagnosed him with allergic conjunctivitis and prescribed ketorolac eyedrops. Patient states that these eyedrops only made things worse. States that the symptoms had been going away and then returning. States that yesterday his right eye was completely normal however when he woke up today the right eye was red, itchy/irritated so he called his primary care doctor who advised he come to the emergency department. Patient denies any changes in his vision, no spots, no specks, no flashing li ghts. No pain with eye movement or redness/swelling of the periorbital area. He does not wear glasses or contact lenses. He does not recall having any foreign body into the eye. States that he does take daily Flonase and allergy pill. He is not allergic to any medications. Related Data Previous Rx's Medication Instructions Recorded clarithromycin 500 mg tablet 500 mg PO Q12H #20 tabs 01/06/24 erythromycin 5 mg/gram (0.5 %) eye 1 cm EYE-RIGHT QID 7 days #3.5 05/29/24 ointment grams Allergies Allergy/AdvReac Type Severity Reaction Status Date / Time No Known Drug Allergies Allergy Verified 02/04/24 20:20 Review of Systems <Mckayla Navarro PA-C - Last Filed: 05/29/24 12:18> Review of Systems ROS Unobtainable: All systems reviewed & are unremarkable except as noted in HPI and below Patient History <Mckayla Navarro PA-C - Last Filed: 05/29/24 12:18> Social History Smoking Status: Never smoker Smoking Status: Never smoker alcohol intake frequency: holidays/special occasions only Exam <Mckayla Navarro PA-C - Last Filed: 05/29/24 12:18> Narrative Exam Narrative: GENERAL: 23 year old patient appears stated age. Well-developed patient, in no acute distress. HEAD: Atraumatic. Normocephalic. EYES: PERRL. Extraocular motions intact. Minimal erythema of right conjunctiva, no erythema around the iris. No drainage. No erythema or edema of right periorbital area. There is very faint erythema of the left conjunctiva as well but no symptoms. On fluorescein exam R eye, there is no corneal abrasion, negative Joshua sign. R IOP 14. No FB on eversion of R upper lid. ENT: Blue tympanostomy tubes in place bilaterally. Nose without bleeding, purulent drainage. Throat without erythema, tonsillar hypertrophy or exudate. Airway patent. NECK: Trachea midline. Cervical ROM intact. CARDIOVASCULAR: Regular rate and rhythm. RESPIRATORY: ?Nonlabored respirations. ?Speaking in clear, full sentences. NEURO: AOx3. ?Clear speech. ?Moves all 4 extremities appropriately. SKIN: No rash or erythema of visible areas Initial Vital Signs Initial Vital Signs: Vital Signs Temperature 98 F 05/29/24 10:56 Pulse Rate 84 05/29/24 10:56 Respiratory Rate 20 05/29/24 10:56 Blood Pressure 134/66 05/29/24 10:56 <Kendell Akhtar MD - Last Filed: 05/29/24 20:52> Initial Vital Signs Initial Vital Signs: Vital Signs Temperature 98 F 05/29/24 10:56 Pulse Rate 84 05/29/24 10:56 Respiratory Rate 20 05/29/24 10:56 Blood Pressure 134/66 05/29/24 10:56 Course <Mckayla Navarro PA-C - Last Filed: 05/29/24 12:18> Orders Ordered: Discontinued Medications Erythromycin (Erythromycin Ophth 1 Gm Oint) 1 applic EYE-RIGHT NOW ONE Stop: 05/29/24 12:15 Last Admin: 05/29/24 12:24 Dose: 1 applic Documented By: MPO Fluorescein Sodium (Fluorescein 1 Mg Strip) 1 mg EYE-RIGHT NOW ONE Stop: 05/29/24 11:45 Last Admin: 05/29/24 11:50 Dose: 1 mg Documented By: MPO Proparacaine HCl (Proparacaine 0.5% Ophth [place]) 1 drops EYE-RIGHT NOW ONE Stop: 05/29/24 11:44 Last Admin: 05/29/24 11:50 Dose: 1 drop Documented By: MPO Vital Signs Vital signs: Vital Signs - 8 hr 05/29/24 10:56 Temperature 98 F Pulse Rate 84 Respiratory Rate 20 Blood Pressure 134/66 <Kendell Akhtar MD - Last Filed: 05/29/24 20:52> Orders Ordered: Discontinued Medications Erythromycin (Erythromycin Ophth 1 Gm Oint) 1 applic EYE-RIGHT NOW ONE Stop: 05/29/24 12:15 Last Admin: 05/29/24 12:24 Dose: 1 applic Documented By: MPO Fluorescein Sodium (Fluorescein 1 Mg Strip) 1 mg EYE-RIGHT NOW ONE Stop: 05/29/24 11:45 Last Admin: 05/29/24 11:50 Dose: 1 mg Documented By: MPO Proparacaine HCl (Proparacaine 0.5% Ophth [place]) 1 drops EYE-RIGHT NOW ONE Stop: 05/29/24 11:44 Last Admin: 05/29/24 11:50 Dose: 1 drop Documented By: MPO Vital Signs Vital signs: Vital Signs - 8 hr 05/29/24 10:56 Temperature 98 F Pulse Rate 84 Respiratory Rate 20 Blood Pressure 134/66 MDM - Eye Problem <Mckayla Navarro PA-C - Last Filed: 05/29/24 12:18> Medical Records Attestation: I reviewed the patient's medical records. 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 Differential diagnosis includes but is not limited to allergic conjunctivitis, bacterial conjunctivitis, viral conjunctivitis, dry, glaucoma, corneal abrasion, corneal ulcer,etc. On exam the patient is in no acute distress, nontoxic appearing, vital signs within normal limits, right eye visual acuity 20/40, left 20/20, bilateral 20/20, gross vision and visual palomares intact. He is mild erythema of the right conjunctiva. Normal intra-ocular pressure 14. No corneal abrasions. We will treat with erythromycin ophthalmic ointment for potential bacterial conjunctivitis in addition this will provide lubrication. Recommended he continue with his daily allergy pill and Flonase. Advised he follow up with an eye doctor and his primary care doctor. Strict ED return precautions were discussed. He verbalized understanding all information is agreeable with the plan. He is stable for discharge home. Discharge Plan Departure Patient Disposition: Home Clinical Impression: Acute conjunctivitis, right eye Qualifiers: Acute conjunctivitis type: unspecified Qualified Code(s): H10.31 - Unspecified acute conjunctivitis, right eye Instructions: DI for Conjunctivitis Activity Restrictions/Additional Instructions: Dear Mr. Naranjo, Thank you for coming to the emergency department. Today you were evaluated for redness and irritation of your right eye. We are treating you with an antibiotic eye ointment for conjunctivitis. Please apply the ointment 4 times a day for the next 7 days. You may also apply a lubricating eye drop between applications such as Systane Ultra. Please call to schedule an appointment with Ophthalmology for further evaluation, you may call [phone] schedule [address] appointment with Dr. Barraza. Return to the emergency department if you develop any changes with your vision, redness or swelling of the face, or any other concerns. Please follow up with your primary care doctor within the next 2-3 days for ER follow-up. (If you do not have a PCP you can call [phone]. ?to schedule an appointment with an [facility] Primary Care Provider) IF YOU DEVELOP ANY NEW OR WORSENING SYMPTOMS, RETURN TO THE ER! Please read the attached instructions, they highlight more specific treatments and interventions for you at home. Thank you for letting me participate in your care, Mckayla Navarro PA-C Prescriptions: New erythromycin 5 mg/gram (0.5 %) ointment 1 cm EYE-RIGHT QID 7 Days Qty: 3.5 0RF No Action clarithromycin 500 mg tablet 500 mg PO Q12H Qty: 20 0RF Referrals: ProviderJeronimo [Primary Care Provider] - Stand Alone Forms: Patient Portal/API/Survey ED Sign-out <Kendell Akhtar MD - Last Filed: 05/29/24 20:52> Cosign ED Attending Cosignature Attestation: I was immediately available in the department for consultation. This documentation has been reviewed and I agree with assessment and plan. Supervised by Kendell Akhtar MD
[2024-05-29] MEDS: FLUORESCEIN 1 MG STRIP EYE-RIGHT (11:50)
[2024-05-29] MEDS: PROPARACAINE 0.5% OPHTH SOL 1 DROPS EYE-RIGHT (11:50)
[2024-05-29] MEDS: ERYTHROMYCIN OPHTH 1 GM OINT 1 APPLIC EYE-RIGHT (12:24)
[2024-05-29 12:25] VITALS: BP 129/63; PULSE 80; RESP 20; TEMP 36.6; O2SAT 100
== END 2024-05-29 12:26 | disposition home or self-care (01) ==
PROVIDERS: Emergency Provider Physician Assistant
DX: H10.31 Unspecified acute conjunctivitis, right eye (principal)
CPT/HCPCS: 99282

== ENCOUNTER 2024-11-21 09:03 | Emergency (ER) | payer OTHER, SELFPAY ==
[2024-11-21] VITALS (8 sets, daily range): BP systolic 115–133; BP diastolic 58–68; PULSE 53–85; RESP 18; TEMP 36.8–37.1; O2SAT 95–98; BMI 25.0
--- NOTE | 2024-11-21 09:17 | ED.GENADULT ---
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 Patient presents today with cough sputum production blood-tinged dark colored along with fever 100 aches and chills and feeling clammy. Patient denies any sick contacts, nausea, vomiting, diarrhea, sore throat, chest pain, shortness of breath, dyspnea on exertion. He did receive his flu shot but COVID is contraindicated for him. Other than what is stated 14 point review of system is negative. Related Data Previous Rx's ?Medication ?Instructions ?Recorded clarithromycin 500 mg tablet 500 mg PO Q12H #20 tabs 01/06/24 azithromycin 250 mg tablet 250 mg PO DAILY 4 days #4 tabs 11/21/24 cefpodoxime 200 mg tablet 200 mg PO Q12H #14 tabs 11/21/24 Allergies Allergy/AdvReac Type Severity Reaction Status Date / Time No Known Drug Allergies Allergy Verified 11/21/24 09:12 Review of Systems Review of Systems ROS Unobtainable: All systems reviewed & are unremarkable except as noted in HPI and below Patient History alcohol intake frequency: holidays/special occasions only Exam Narrative Exam Narrative: GENERAL: [24] year old patient appears stated age. Well-developed patient, in mild distress. HEAD: Atraumatic. Normocephalic. EYES: Pupils equal round and reactive. Extraocular motions intact. No scleral icterus. No injection or drainage. ENT: Nose without bleeding, purulent drainage. Throat without erythema, tonsillar hypertrophy or exudate. Airway patent. NECK: Trachea midline. Non tender CARDIOVASCULAR: Regular rate and rhythm without murmurs, gallops, or rubs. RESPIRATORY: Clear to auscultation. Breath sounds equal bilaterally. No wheezes, rales, or rhonchi. GASTROINTESTINAL: Abdomen soft, non-tender, nondistended. EXTREMITIES: No edema or joint tenderness. BACK: Nontender without deformity or crepitance. No flank tenderness. NEURO: AOx3. SKIN: No rash or erythema of visible areas Initial Vital Signs Initial Vital Signs: Vital Signs Pulse Rate 84 11/21/24 09:08 Blood Pressure 133/64 11/21/24 09:08 Pulse Oximetry 98 11/21/24 09:08 Course Orders Ordered: ED Orders 11/21/24 09:25 CXR [XR chest 2V] Stat 11/21/24 09:30 Covid-19 + FLU A/B + RSV - PCR Stat 11/21/24 09:40 CBC Auto Diff [Complete Blood Count AUTO DIFF] Stat Vital Signs Vital signs: Vital Signs - 8 hr 11/21/24 09:08 11/21/24 09:08 11/21/24 09:12 Temperature 98.7 F Pulse Rate 84 80 Respiratory Rate 18 Blood Pressure 133/64 133/64 Pulse Oximetry 98 98 Oxygen Delivery Method Room Air Medical Decision Making Lab Data 11/21/24 09:40 Labs: Lab Results 11/21/24 11/21/24 Range/Units 09:30 09:40 WBC 12.0 H (4.5-11.0) X10^3/uL RBC 5.53 (4.5-5.9) X10^6/uL Hgb 14.8 (13.5-17.5) g/dL Hct 44.8 (41-53) % MCV 80.9 (80-100) fL MCH 26.8 (26-34) PG MCHC 33.2 (30-36) % RDW 13.5 (11.6-14.8) % Plt Count 154 (150-400) X10^3/uL Neut % (Auto) 77.5 H (50-75) % Lymph % (Auto) 11.8 L (25-40) % Early % (Auto) 6.8 (3-14) % Eos % (Auto) 3.4 (2-4) % Baso % (Auto) 0.5 (0-2) % Neut # (Auto) 9300 H (8001-0430) /uL Lymph # (Auto) 1400 (6471-2064) /uL Early # (Auto) 800 (0-900) /uL Eos # (Auto) 400 (0-450) /uL Baso # (Auto) 100 (0-100) /uL SARS-CoV-2 (PCR) Negative (Negative) Influenza A (RT-PCR) Flu a negative (NEGATIVE) Influenza B (RT-PCR) Flu b negative (NEGATIVE) RSV (PCR) Negative (Negative) Imaging Data Chest x-ray: Radiologist's Impression: [address] [address] XRay Report Signed Patient: Oz Naranjo MR#: [id number] : 2000 Acct:[id number] Age/Sex: 24 / M Date of Service: 11/21/24 Loc: ED Accession Number: [id number] Procedure: XR chest 2V Ordering Provider: Mina Allen D.O. PROCEDURE: XR CHEST 2V INDICATIONS: cough fever TECHNIQUE: 2 views of the chest were acquired. COMPARISON: None. FINDINGS: Surgical changes and devices: None. Lungs and pleura: There is focal consolidation within the lingula without effusion or pneumothorax. Lungs are otherwise clear. No pleural effusions or pneumothorax. Mediastinum: Mediastinal contours are normal. Heart size is normal. Bones and chest wall: No suspicious bony abnormalities. Soft tissues appear unremarkable. IMPRESSION: Lingular pneumonia. Dictated by: Magaly Christie M.D. on 11/21/2024 at 9:06 Approved by: Magaly Christie M.D. on 11/21/2024 at 9:08 [facility] Narrative Medical decision making narrative: All lab work,vital signs, nurse triage note, medication list, previous ER visits, and all imaging studies reviewed. Chest x-ray showed lingular pneumonia. White count of 12 COVID flu RSV negative. Differential diagnosis includes COVID flu RSV and pneumonia. DC home on cefpodxime and zpack. Return with new or worsening symptoms. Discharge Plan Departure Patient Disposition: Home Clinical Impression: Pneumonia Instructions: Pneumonia-Adult Activity Restrictions/Additional Instructions: Return with new or worsening symptoms. Prescriptions: New cefpodoxime 200 mg tablet 200 mg PO Q12H Qty: 14 0RF Rx Instructions: must administer with a meal/food azithromycin 250 mg tablet 250 mg PO DAILY 4 Days Qty: 4 0RF Rx Instructions: start on day 2 of therapy No Action clarithromycin 500 mg tablet 500 mg PO Q12H Qty: 20 0RF Referrals: ProviderJeronimo [Primary Care Provider, Family Practice] Stand Alone Forms: Patient Portal/API
--- NOTE | 2024-11-21 09:25 | DI.RAD.S_ITS ---
PROCEDURE: XR CHEST 2V INDICATIONS: cough fever TECHNIQUE: 2 views of the chest were acquired. COMPARISON: None. FINDINGS: Surgical changes and devices: None. Lungs and pleura: There is focal consolidation within the lingula without effusion or pneumothorax. Lungs are otherwise clear. No pleural effusions or pneumothorax. Mediastinum: Mediastinal contours are normal. Heart size is normal. Bones and chest wall: No suspicious bony abnormalities. Soft tissues appear unremarkable. IMPRESSION: Lingular pneumonia. Dictated by: Magaly Christie M.D. on 11/21/2024 at 9:06 Approved by: Magaly Christie M.D. on 11/21/2024 at 9:08
[2024-11-21 09:51] LABS: Add Manual Diff / Slide Review NO; Hematocrit 44.8 % (41-53); Hemoglobin 14.8 g/dL (13.5-17.5); Lymphocytes Absolute Auto 1400 /uL (1100-4500); Mean Corpuscular HGB Conc 33.2 % (30-36); Mean Corpuscular Hemoglobin 26.8 PG (26-34); Mean Corpuscular Volume 80.9 fL (80-100); Platelet Count 154 X10^3/uL (150-400)
[2024-11-21 10:12] LABS: Influenza A - CEPHEID Flu A NEGATIVE (NEGATIVE); Influenza B - CEPHEID Flu B NEGATIVE (NEGATIVE)
[2024-11-21 10:14] LABS: COVID-19 CEPHEID 4-PLEX PCR Negative (Negative)
[2024-11-21] MEDS: AZITHROMYCIN 250 MG TABLET 500 MG PO (10:36)
[2024-11-21] MEDS: LIDOCAINE 1% 20 ML 3 ML SUBCUT (10:38)
== END 2024-11-21 10:52 | disposition home or self-care (01) ==
PROVIDERS: Emergency Provider Family Medicine
DX: J18.9 Pneumonia, unspecified organism (principal)
CPT/HCPCS: 71046; 85025; 87637; 96372; 99283; 99284; J0696